=== PATIENT | male | born 1945 | race Caucasian/White ===

== ENCOUNTER 2017-11-12 14:09 | Outpatient (CLI) | payer OTHER ==
[2017-11-12 14:37] LABS: BASOPHILS % (AUTO) 0.3 %; EOSINOPHILS # (AUTO) 0.1 10^3/uL (0.0-0.7); EOSINOPHILS % (AUTO) 2.4 %; HGB - HEMOGLOBIN 15.5 g/dL (14.0-18.0); LYMPHOCYTES # (AUTO) 1.7 10^3/uL (1.5-3.5); LYMPHOCYTES % (AUTO) 30.9 %; MEAN CORPUSCULAR HEMOGLOBIN 31.8 pg (27.0-31.0); MEAN CORPUSCULAR HGB CONC 34.2 g/dL (32.0-36.0); MEAN CORPUSCULAR VOLUME 92.9 fL (80.0-94.0); MEAN PLATELET VOLUME 8.9 fL (7.4-11.4); MONOCYTES # (AUTO) 0.5 10^3/uL (0.0-1.0); MONOCYTES % (AUTO) 9.1 %; NEUTROPHILS # (AUTO) 3.2 10^3/uL (1.5-6.6); NEUTROPHILS % (AUTO) 57.3 %; PLT - PLATELET COUNT 155 10^3/uL (130-450); RED BLOOD COUNT 4.88 10^6/uL (4.70-6.10); RED CELL DISTRIBUTION WIDTH 12.7 % (12.0-15.0); WHITE BLOOD COUNT 5.6 x10^3/uL (4.8-10.8)
[2017-11-12 14:56] LABS: ALBUMIN 4.8 g/dL (3.2-5.5); ALBUMIN/GLOBULIN RATIO 1.8 (1.0-2.2); ALKALINE PHOSPHATASE 49 IU/L (42-121); ALT ALANINE AMINOTRANSFERASE 39 IU/L (10-60); AST ASPARTATE AMINOTRANSFERASE 40 IU/L (10-42); BILIRUBIN,TOTAL 0.7 mg/dL (0.2-1.0); BUN - BLOOD UREA NITROGEN 19 mg/dL (6-20); CALCIUM 9.3 mg/dL (8.5-10.3); CARBON DIOXIDE - CO2 27 mmol/L (21-32); CHLORIDE 101 mmol/L (101-111); CHOL/HDL RATIO 3.9 (<5.0); CHOLESTEROL 140 mg/dL; CK- CREATINE KINASE 401 IU/L (22-269); CREATININE 0.9 mg/dL (0.6-1.2); GFR - MDRD 82 (>89); GLUCOSE 95 mg/dL (70-100); HDL CHOLESTEROL 36 mg/dL; LDL CHOLESTEROL,CALCULATED 81 mg/dL; LDL/HDL RATIO 2.3 (<3.6); SODIUM 137 mmol/L (135-145); TOTAL PROTEIN 7.5 g/dL (6.7-8.2); VLDL CHOLESTEROL 23 mg/dL
== END 2017-11-12 14:10 | disposition home or self-care (01) ==
LOC: LAB 14:09
PROVIDERS: ATTEND Internal Medicine
DX: Z12.5 Encounter for screening for malignant neoplasm of prostate (principal); Z79.899 Other long term (current) drug therapy; Z13.6 Encounter for screening for cardiovascular disorders; E78.5 Hyperlipidemia, unspecified; R07.9 Chest pain, unspecified
CPT/HCPCS: 36415; 80053; 80061; 82550; 83721; 84153; 84443; 85025

== ENCOUNTER 2017-12-13 11:22 | Outpatient (CLI) | payer OTHER ==
[2017-12-13 16:05] VITALS: BP 132/74
--- NOTE | 2017-12-13 16:25 | CARDIAC PROCEDURE NOTE ---
DATE OF SERVICE: 12/13/2017 Physician: NORBERT Carrera PRIMARY CARE PHYSICIAN: Belkis Sanchez MD PROCEDURE: Myocardial perfusion treadmill. PROCEDURE SYMPTOMS: Chest pain. CARDIAC RISK FACTORS: Age and hyperlipidemia. PREVIOUS CARDIAC PROCEDURES: ETT. - CURRENT SYMPTOMATOLOGY: None. CLINICAL HISTORY: A 72-year-old male without known coronary artery disease. INITIAL RESTING VITAL SIGNS: BP 140/84, heart rate 64, height 71 inches, weight 208 pounds, BMI 29.0. PROCEDURE AND FINDINGS: The patient identity and date verified, consent signed. The patient performed treadmill exercise using a Gaston protocol, completing 8 minutes, 45 seconds and completing an estimated workload of 8.28 metabolic equivalents. At peak exercise, Cardiolite radioactive tracer was injected intravenously. The treadmill had to be slowed down to 2.7 miles per hour to maintain a full minute after tracer was injected, for the patient to continue exercising. Maximal blood pressure was 200/78 with a heart rate of 135 beats per minute or 92% of the maximum predicted heart rate for age. The blood pressure response to exercise was within normal limits. The patient stopped because he was tiring. The resting ECG demonstrated normal sinus rhythm with no abnormality. Maximum ST segment depression was around 1 mm and upsloping. There were rare PVCs and occasional PACs. FINAL IMPRESSIONS 1. Good quality test. 2. Equivocal stress electrocardiogram for ischemia by electrocardiographic criteria. 3. Negative stress test clinically for angina. 4. PVCs and PACs. 5. Await myocardial perfusion scan. TD: 12/13/2017 15:39
--- NOTE | 2017-12-13 17:08 | Nuclear Medicine Report ---
EXAM: NUCLEAR MEDICINE MYOCARDIAL PERFUSION STRESS AND REST EXAM DATE: 12/13/2017 04:37 PM. CLINICAL HISTORY: Chest pain. COMPARISON: None. TECHNIQUE: Patient given 9.6 mCi technetium 99m sestamibi IV for the rest portion of the study. Non-g ated SPECT scintigraphy performed with multiplanar reformats. After an appropriate delay, patient exercised on a treadmill protocol. Near peak stress, patient give n 14.9 mCi technetium 99m sestamibi IV. Cardiac gated SPECT scintigraphy performed with multiplanar r eformats, wall motion analysis, and left ventricular ejection fraction estimation. COMPARISON: No priors. FINDINGS: There is a small focus of mild decreased uptake in the anteroseptal wall from apex to mid ventricle, essentially fixed although somewhat more prominent on the rest images. Remaining left ventricular myocardium demonstrates uniform activity on stress and rest. No reversible stress-related perfusion defects. Wall motion is uniform. Left ventricular ejection fraction estimated at 64%. IMPRESSION: 1. Probable small anteroseptal infarct. 2. No scintigraphic evidence of inducible ischemia. 3. Left ventricular ejection fraction estimated at 64%. [facility] Referring Provider Line: [phone] SITE ID: [id number]
== END 2017-12-13 11:23 | disposition home or self-care (01) ==
LOC: DI 11:22
PROVIDERS: ATTEND Internal Medicine
DX: R07.9 Chest pain, unspecified (principal); I49.3 Ventricular premature depolarization; I49.1 Atrial premature depolarization
CPT/HCPCS: 78452; 93017; A9500

== ENCOUNTER 2018-11-26 10:14 | Outpatient (CLI) | payer MEDICARE, OTHER | END 2018-11-26 10:15 | disposition home or self-care (01) | LOC: NS 10:14 | PROVIDERS: ATTEND Internal Medicine | DX: Z71.3 Dietary counseling and surveillance (principal); E11.9 Type 2 diabetes mellitus without complications | CPT/HCPCS: 97802 ==

== ENCOUNTER 2018-12-10 13:14 | Outpatient (CLI) | payer MEDICARE, OTHER | END 2018-12-10 13:15 | disposition home or self-care (01) | LOC: NS 13:14 | PROVIDERS: ATTEND Internal Medicine | DX: Z71.3 Dietary counseling and surveillance (principal); E11.9 Type 2 diabetes mellitus without complications | CPT/HCPCS: 97803 ==

== ENCOUNTER 2019-01-20 10:15 | Outpatient (CLI) | payer MEDICARE, OTHER | END 2019-01-20 10:16 | disposition home or self-care (01) | LOC: NS 10:15 | PROVIDERS: ATTEND Internal Medicine | DX: Z71.3 Dietary counseling and surveillance (principal); E11.9 Type 2 diabetes mellitus without complications | CPT/HCPCS: 97803 ==

== ENCOUNTER 2019-12-03 09:47 | Outpatient (CLI) | payer MEDICARE, OTHER ==
[2019-12-03 10:06] LABS: BASOPHILS % (AUTO) 0.6 %; EOSINOPHILS # (AUTO) 0.2 10^3/uL (0.0-0.7); EOSINOPHILS % (AUTO) 4.3 %; HGB - HEMOGLOBIN 14.9 g/dL (14.0-18.0); LYMPHOCYTES # (AUTO) 1.4 10^3/uL (1.5-3.5); LYMPHOCYTES % (AUTO) 26.1 %; MEAN CORPUSCULAR HEMOGLOBIN 30.8 pg (27.0-31.0); MEAN CORPUSCULAR HGB CONC 33.6 g/dL (32.0-36.0); MEAN CORPUSCULAR VOLUME 91.5 fL (80.0-94.0); MEAN PLATELET VOLUME 9.6 fL (7.4-11.4); MONOCYTES # (AUTO) 0.6 10^3/uL (0.0-1.0); MONOCYTES % (AUTO) 11.3 %; NEUTROPHILS # (AUTO) 3.1 10^3/uL (1.5-6.6); NEUTROPHILS % (AUTO) 57.5 %; PLT - PLATELET COUNT 182 10^3/uL (130-450); RED BLOOD COUNT 4.84 10^6/uL (4.70-6.10); RED CELL DISTRIBUTION WIDTH 12.2 % (12.0-15.0); WHITE BLOOD COUNT 5.3 x10^3/uL (4.8-10.8)
[2019-12-03 10:23] LABS: ALBUMIN 4.7 g/dL (3.2-5.5); ALBUMIN/GLOBULIN RATIO 1.6 (1.0-2.2); ALKALINE PHOSPHATASE 49 IU/L (42-121); ALT ALANINE AMINOTRANSFERASE 20 IU/L (10-60); AST ASPARTATE AMINOTRANSFERASE 20 IU/L (10-42); BILIRUBIN,TOTAL 0.9 mg/dL (0.2-1.0); BUN - BLOOD UREA NITROGEN 21 mg/dL (6-20); CALCIUM 9.3 mg/dL (8.5-10.3); CARBON DIOXIDE - CO2 30 mmol/L (21-32); CHLORIDE 101 mmol/L (101-111); CHOL/HDL RATIO 3.4 (<5.0); CHOLESTEROL 113 mg/dL; CK- CREATINE KINASE 82 IU/L (22-269); CREATININE 1.1 mg/dL (0.6-1.2); GLUCOSE 113 mg/dL (70-100); HDL CHOLESTEROL 33 mg/dL; LDL CHOLESTEROL,CALCULATED 55 mg/dL; LDL/HDL RATIO 1.7 (<3.6); SODIUM 137 mmol/L (135-145); TOTAL PROTEIN 7.7 g/dL (6.7-8.2); VLDL CHOLESTEROL 25 mg/dL
[2019-12-03 10:25] LABS: HB2 TOTAL 16.3 g/dL; HEMOGLOBIN A1C 0.62 g/dL; HEMOGLOBIN A1C % 5.6 % (4.6-6.2)
[2019-12-03 10:59] LABS: BILIRUBIN,URINE NEGATIVE (NEGATIVE); GLUCOSE, URINE (UA) NEGATIVE (NEGATIVE); KETONES,URINE (UA) NEGATIVE (NEGATIVE); LEUKOCYTE ESTERASE, URINE NEGATIVE (NEGATIVE); NITRITE,URINE NEGATIVE (NEGATIVE); OCCULT BLOOD,URINE NEGATIVE (NEGATIVE); PH,URINE 6.5 PH (5.0-7.5); PROTEIN,URINE NEGATIVE (NEGATIVE); UROBILINOGEN,URINE 0.2 (NORMAL) E.U./dL (NORMAL)
[2019-12-03 11:03] LABS: CLARITY,URINE CLEAR (CLEAR)
[2019-12-03 11:12] LABS: CREATININE,URINE 57.3 mg/dL; MICROALBUM/CREATININE RATIO,UR 3.5 ug/mg (<30.0); MICROALBUMIN,URINE 0.2 mg/dL (0-300.0)
== END 2019-12-03 09:48 | disposition home or self-care (01) ==
LOC: LAB 09:47
PROVIDERS: ATTEND Internal Medicine
DX: Z12.5 Encounter for screening for malignant neoplasm of prostate (principal); Z79.899 Other long term (current) drug therapy; E11.9 Type 2 diabetes mellitus without complications; E78.5 Hyperlipidemia, unspecified; I25.10 Atherosclerotic heart disease of native coronary artery without angina pectoris; R39.15 Urgency of urination
CPT/HCPCS: 36415; 80053; 80061; 81003; 82043; 82550; 82570; 82607; 83036; 84443; 85025; G0103; 81001; 83721; 84153; 84550; 87086

== ENCOUNTER 2021-12-19 10:18 | Outpatient (CLI) | payer MEDICARE, OTHER ==
[2021-12-19 10:41] LABS: BASOPHILS % (AUTO) 0.6 %; EOSINOPHILS # (AUTO) 0.5 10^3/uL (0.0-0.7); EOSINOPHILS % (AUTO) 8.4 %; HCT - HEMATOCRIT 45.1 % (42.0-52.0); HGB - HEMOGLOBIN 14.9 g/dL (14.0-18.0); LYMPHOCYTES # (AUTO) 1.8 10^3/uL (1.5-3.5); LYMPHOCYTES % (AUTO) 29.3 %; MEAN CORPUSCULAR HEMOGLOBIN 31.4 pg (27.0-31.0); MEAN CORPUSCULAR VOLUME 94.9 fL (80.0-94.0); MEAN PLATELET VOLUME 10.1 fL (7.4-11.4); MONOCYTES # (AUTO) 0.5 10^3/uL (0.0-1.0); MONOCYTES % (AUTO) 7.8 %; NEUTROPHILS # (AUTO) 3.3 10^3/uL (1.5-6.6); NEUTROPHILS % (AUTO) 53.7 %; PLT - PLATELET COUNT 176 10^3/uL (130-450); RED BLOOD COUNT 4.75 10^6/uL (4.70-6.10); WHITE BLOOD COUNT 6.2 x10^3/uL (4.8-10.8)
[2021-12-19 11:00] LABS: ALBUMIN 4.6 g/dL (3.2-5.5); ALBUMIN/GLOBULIN RATIO 1.8 (1.0-2.2); ALKALINE PHOSPHATASE 47 IU/L (42-121); ALT ALANINE AMINOTRANSFERASE 24 IU/L (10-60); AST ASPARTATE AMINOTRANSFERASE 25 IU/L (10-42); BILIRUBIN,TOTAL 0.6 mg/dL (0.2-1.0); BUN - BLOOD UREA NITROGEN 22 mg/dL (6-20); CALCIUM 9.4 mg/dL (8.5-10.3); CARBON DIOXIDE - CO2 26 mmol/L (21-32); CHLORIDE 101 mmol/L (101-111); CHOL/HDL RATIO 3.4 (<5.0); CHOLESTEROL 150 mg/dL; CREATININE 0.9 mg/dL (0.6-1.2); GFR - MDRD 82 (>89); GLUCOSE 123 mg/dL (70-100); HDL CHOLESTEROL 44 mg/dL; LDL CHOLESTEROL,CALCULATED 73 mg/dL; LDL/HDL RATIO 1.7 (<3.6); POTASSIUM 4.2 mmol/L (3.5-5.0); SODIUM 138 mmol/L (135-145); TOTAL PROTEIN 7.2 g/dL (6.7-8.2); TRIGLYCERIDES 164 mg/dL; VLDL CHOLESTEROL 33 mg/dL
[2021-12-19 11:38] LABS: PSA TOTAL 0.24 ng/mL (0.000-2.000)
[2021-12-19 16:00] LABS: CREATININE,URINE 24.9 mg/dL; MICROALBUMIN,URINE 0.2 mg/dL (0-300.0)
[2021-12-19 16:36] LABS: ESTIMATED AVERAGE GLUCOSE 146 mg/dL (70-100); HEMOGLOBIN A1c% 6.7 % (4.27-6.07)
== END 2021-12-19 10:19 | disposition home or self-care (01) ==
LOC: LAB 10:18
PROVIDERS: ATTEND Internal Medicine
DX: Z00.00 Encounter for general adult medical examination without abnormal findings (principal); I48.91 Unspecified atrial fibrillation; I25.10 Atherosclerotic heart disease of native coronary artery without angina pectoris; E11.9 Type 2 diabetes mellitus without complications; E78.5 Hyperlipidemia, unspecified
CPT/HCPCS: 36415; 80053; 80061; 82043; 82570; 83036; 83721; 84153; 84443; 85025